=== PATIENT | female | born 2000 | race Hispanic/Latino ===

== ENCOUNTER 2025-04-19 01:42 | Emergency (ER) | payer SELFPAY ==
[~2025-04-19] VITALS: Ht 162.6 cm; Wt 123.4 kg
--- NOTE | 2025-04-19 01:52 | ERN ---
General Chief Complaint: Laceration/Avulsion Stated Complaint: LACERATION Time Seen by MD: 01:49 Source: patient History of Present Illness Initial Comments Patient was out fishing and getting a fish and her knife slipped and she cut herself twice on her left forearm volar surface incisions go through the epidermis to the subcutaneous fat. She does not know when her last tetanus shot was. Allergies: Coded Allergies: No Known Allergies (Unverified Allergy, Unknown, 04/19/25) Past Medical History Past Medical History: No Pertinent History ROS Dictation Review of systems is otherwise negative. Physical Exam Extremities Comment Left forearm two horizontal incisions about 3 in in length through the epidermis down to the subcutaneous fat. The quality of the incisions are consistent with the story provided by the patient. MDM I will give the patient a tetanus shot. Please see the procedure note for the suture repair. Patient can go home and follow-up with her primary care physician to remove the sutures. ED Course Orders Procedure Category Date Status Time Lidocaine Hcl 1% 20ml PHA 04/19/25 Complete Vial (Lidocaine Hc 02:00 Tetanus,Diphtheria PHA 04/19/25 Complete Tox [Adult] (Diphther 02:30 Bacitracin PHA 04/19/25 Complete (Bacitracin) 03:00 Current Medications Medications (Trade) Dose Ordered Sig/Paula Route PRN Reason Start Time Stop Time Status Last Admin Dose Admin Bacitracin (Bacitracin) 1 each ONCE ONCE TP 04/19/25 03:00 04/19/25 03:01 DC 04/19/25 02:44 Lidocaine HCl (Lidocaine HCl 1% 20ml Vial) 10 ml ONCE ONCE INJ 04/19/25 02:00 04/19/25 02:01 DC Tetanus/ Diphtheria Toxoids Adsorbed (DiphthERIA-teTANUS TOXOID [ADULT]/ DECAVAC) 0.5 ml ONCE ONCE IM 04/19/25 02:30 04/19/25 02:31 DC 04/19/25 02:21 Vital Signs Date Time Temp Pulse Resp B/P (MAP) Pulse Ox O2 Delivery O2 Flow Rate FiO2 04/19/25 01:44 98.1 66 18 140/96 99 Nasal Cannula Laceration/Wound Repair Laceration/Wound Repair : Wound Location: upper extremity Wound Length (cm): 7 Wound's Depth, Shape: superficial Wound Explored: clean Betadine Prep?: Yes Anesthesia: 1% Lidocaine Wound Debrided: minimal Wound Repaired With: sutures Suture Size/Type: 4:0 Number of Sutures: 20 DX & DISP Disposition: Discharge Departure Impression: Primary Impression: Forearm laceration Condition: Stable TANIA RÍOS MD April 19, 2025 01:52
[2025-04-19] MEDS: LIDOCAINE HCL 1% 20 ML VIAL INJ ONE (02:15)
--- NOTE | 2025-04-19 02:17 | NUR ---
LACERATIONS TO L FOREARM CLEANED WITH SKIN CLEANSER IRRIGATED WITH NORMAL SALINE. PATIENT TOLERATED WELL. LIDOCAINE ADMINISTERED AND SUTURES PLACED BY DR RÍOS. PATIENT TOLERATED WELL
[2025-04-19] MEDS: teTANUS/diphthERIA TOXOID [ADULT] 0.5 ML VIAL IM ONE (02:21)
[2025-04-19] MEDS: BACITRACIN 1 EACH PACKET TP ONE (02:44)
--- NOTE | 2025-04-19 02:49 | NUR ---
BACITRACIN APPLIED TO LACERATIONS, COVERED WITH NONADHERENT GAUZE WRAPPED WITH KERLIX
[2025-04-19 03:14] VITALS: BP 136/87; PULSE 62; RESP 18; TEMP 98.5; O2SAT 99
== END 2025-04-19 03:21 | disposition home or self-care (01) ==
LOC: EDH 01:42
DX: S51.812A Laceration without foreign body of left forearm, initial encounter (principal); W26.0XXA Contact with knife, initial encounter; Y93.G9 Activity, other involving cooking and grilling; Y92.89 Other specified places as the place of occurrence of the external cause; Y99.8 Other external cause status
CPT/HCPCS: 12002; 90471; 90714; 99283

== ENCOUNTER 2025-04-29 00:21 | Emergency (ER) | payer SELFPAY ==
[~2025-04-29] VITALS: Ht 162.6 cm; Wt 121.1 kg
[2025-04-29] MEDS ORDERED: OCTYL 2-CYANOACRYLATE 1 EACH TP ONE (00:42)
--- NOTE | 2025-04-29 00:49 | ERN ---
General Chief Complaint: Suture/Staple Removal Stated Complaint: SUTURE REMOVAL Time Seen by MD: 00:23 History of Present Illness Initial Comments Patient's left forearm head two laceration sewn up a week ago in the ED she is here for suture removal. Allergies: Coded Allergies: No Known Allergies (Unverified Allergy, Unknown, 04/19/25) Past Medical History Past Medical History: No Pertinent History Past Surgical History: None Physical Exam Extremities Comment Three well-healed incisions uninfected with sutures intact. MDM When I removed the 1st suture on the 1st incision the skin part a little bit and started bleeding. Same thing happened on the 2nd incision. Neither incision had any signs of infection swelling edema or drainage. I repositioned the skin with Dermabond. Patient should return in another week for suture removal. ED Course Orders Procedure Category Date Status Time Dermabond (Dermabond) PHA 04/29/25 Complete 00:42 Current Medications Medications (Trade) Dose Ordered Sig/Paula Route PRN Reason Start Time Stop Time Status Last Admin Dose Admin Octyl Cyanoacrylate (Dermabond) 1 each STK-MED ONCE TP 04/29/25 00:42 04/29/25 00:42 DC Vital Signs Date Time Temp Pulse Resp B/P (MAP) Pulse Ox O2 Delivery O2 Flow Rate FiO2 04/29/25 00:22 97.7 68 20 123/81 99 Room Air DX & DISP Disposition: Discharge Departure Impression: Primary Impression: Forearm laceration Condition: Stable Additional Instructions: Please return in a week for suture removal. Referrals: SELF,REFERRAL (PCP) TANIA RÍOS MD Apr 29, 2025 00:49
[2025-04-29 01:12] VITALS: BP 122/78; PULSE 72; RESP 18; TEMP 98.3; O2SAT 100
--- NOTE | 2025-04-29 01:12 | NUR ---
ASSUMED PT CARE AT THIS TIME
== END 2025-04-29 01:31 | disposition home or self-care (01) ==
LOC: EDH 00:21
DX: S51.812D Laceration without foreign body of left forearm, subsequent encounter (principal); X58.XXXD Exposure to other specified factors, subsequent encounter
CPT/HCPCS: 99281

== ENCOUNTER 2025-05-07 01:12 | Emergency (ER) | payer SELFPAY ==
[~2025-05-07] VITALS: Ht 162.6 cm; Wt 119.7 kg
--- NOTE | 2025-05-07 01:46 | ERN ---
ED Note History of Present Illness Stated Complaint: HERE FOR SUTURE REMOVAL Chief Complaint: Suture/Staple Removal Time Seen by MD: 01:14 Time Seen by Midlevel: 01:30 Dictation: Ms. Luna is a 24-year-old female with history of morbid obesity who presented to the emergency department this morning for suture removal. She states she and 20 sutures placed to the Allergies: Coded Allergies: No Known Allergies (Unverified Allergy, Unknown, 04/19/25) Past Medical History Past Medical History: No Pertinent History Surgical History: None Social History: Negative LMP: April 05, 2025 RN Note Reviewed/Agreed w/PFSH: Yes Review of System Dictation REVIEW OF SYSTEMS: CONSTITUTIONAL: Patient denies fevers, chills, sweats and weight changes. EYES: Patient denies any visual symptoms. EARS, NOSE, AND THROAT: No difficulties with hearing. No symptoms of rhinitis or sore throat. CARDIOVASCULAR: Patient denies chest pains, palpitations, orthopnea and parox ysmal nocturnal dyspnea. RESPIRATORY: No dyspnea on exertion, no wheezing or cough. GI: No nausea, vomiting, diarrhea, constipation, abdominal pain, hematochezia or melena. : No urinary hesitancy or dribbling. No nocturia or urinary frequency. No abnormal urethral discharge. MUSCULOSKELETAL: No myalgias or arthralgias. NEUROLOGIC: No chronic headaches, no seizures. Patient denies numbness, tingling or weakness. PSYCHIATRIC: Patient denies problems with mood disturbance. No problems with anxiety. ENDOCRINE: No excessive urination or excessive thirst. DERMATOLOGIC: She states he is here for removal of 20 sutures to the left forearm. Initial Vital Sign VS Vital Signs Date Time Temp Pulse Resp B/P (MAP) Pulse Ox O2 Delivery O2 Flow Rate FiO2 05/07/25 01:13 98.8 62 20 111/73 98 Room Air Physical Exam Dictation Vital signs: Reviewed. Afebrile Constitutional: No acute distress. Non-toxic appearing. Slightly anxious. Accompanied by family/friend. Head/Face: Normocephalic, atraumatic. Eyes: Periorbital areas with no swelling, redness, or edema. Lids and lashes are normal. Conjunctival injection is absent. Sclera anicteric. Pupils equal, round, reactive to light. ENT: Pinnas intact and no signs of trauma or erythema. Ear canals clear and no discharge. TMs no erythema. No nasal discharge or bleeding noted. Oropharynx with no exudate, redness, swelling, masses, exudates, or evidence of obstruction. Uvula midline. Mucous membranes moist. Neck: Trachea midline, no masses palpated, and no cervical lymphadenopathy. No swelling. Supple, full range of motion. Chest/Axilla: No tenderness, no crepitus, no paradoxical movement, no retractions. Cardiovascular: Regular rate, regular rhythm, no murmur, no gallops. Symmetric pulses. No peripheral edema. Normotensive. Respiratory: Respirations even and unlabored. Lung sounds clear; no wheezes, rales or rhonchi. Room air SpO2 98%. Gastrointestinal: Inspection is normal. No distention is appreciated. Bowel sounds are normal. No mass or organomegaly . There is no tenderness. No rebound. No rigidity. No voluntary or involuntary guarding. No Adorno's sign. Neurological: Normal speech, gross motor function intact, gross sensory function intact. No focal weakness/Paresthesia. Musculoskeletal/Extremities: All extremities have full range of motion, no pain or tenderness on palpation. Symmetric pulses. Reports some pain to the left forearm. She has good color, warmth, movement, and sensation to left fingers. Capillary refills less than 2 seconds. Integumentary: Skin is normal color, warm and dry. Cap refill less than 2 seconds. Lacerations to left forearm healing with scabs. [address]/removed. No bleeding. Patient tolerated well. ED Course ED Course Orders Procedure Category Date Status Time Bacitracin PHA 05/07/25 In Process (Bacitracin) 02:00 Current Medications Medications (Trade) Dose Ordered Sig/Paula Route PRN Reason Start Time Stop Time Status Last Admin Dose Admin Bacitracin (Bacitracin) 1 each ONCE ONCE TP 05/07/25 02:00 05/07/25 02:01 Vital Signs Date Time Temp Pulse Resp B/P (MAP) Pulse Ox O2 Delivery O2 Flow Rate FiO2 05/07/25 01:13 98.8 62 20 111/73 98 Room Air Uneventful ED course. Vital signs are stable. Lacerations to left forearm x3 healing well. Sutures x [address] with scabbing. They were removed; patient tolerated well. Antibiotic ointment and dressing applied. Medical Decision Making MDM MDM: Differential diagnosis: Healing laceration, infected wound. Rationale: Tests considered and ordered secondary to shared decision making include: Examination Previous outside records reviewed: Old ER visits. Risk of complication and/or morbidity or mortality of patient management: None Medications-Per medication reconciliation Need for hospitalization: Patient does not meet criteria for hospitalization. Need for emergency major/minor surgery: No There are no social concerns with this patient. Prescription drug management: OTC antibiotic ointment. Prescriptions will include symptomatic care Patient's prior external medical records from other ER visits were reviewed by me as indicated. Prior testing and results from previous visits were reviewed. Prior tests were taken into account with medical decision making and resource utilization, independent historian/historians were used to obtain complete medical history. I independently interpreted the test that were performed, results were reviewed by me and considered findings on radiology if ordered. Medical management and examination interpretation discussions were had by me with other qualified healthcare professionals as indicated for the patient's care. DX & DISP Disposition: Discharge Departure Impression: Primary Impression: Forearm laceration Additional Impression: Visit for suture removal Condition: Stable Additional Instructions: Keep the area clean and dry for the next 24 hours. After 24 hours you may shower normally but avoid soaking the area (no baths, pools, hot tubs for 2-3 more days). Apply a thin layer of antibiotic ointment daily and cover with a clean bandage until skin is fully closed. Avoid scratching or picking of the healing site. You may resume normal activity but avoid any activity of the places direct fracture friction on the area for a few more days. Avoid heavy lifting or contact sports at the site is soaps tender or scabbing. Return to the ER or your primary care physician if you see redness spreading from the site, swelling/warmth/pain that worsens, pus/drainage from the wound, or fever. To reduce the scarring consider applying vitamin-E lotion once the site is fully healed. Limit sun exposure use SPF 30 to prevent darkening of the scar Referrals: SELF,REFERRAL (PCP) Time of Disposition: 01:57 JESUS CANTU NP May 07, 2025 01:46
[2025-05-07] MEDS: BACITRACIN 1 EACH PACKET TP ONE (01:56)
[2025-05-07 02:00] VITALS: BP 110/68; PULSE 70; RESP 16; TEMP 98.6; O2SAT 99
--- NOTE | 2025-05-07 02:01 | NUR ---
SUTURE REMOVAL DONE BY [facility] [employer], BACITRACIN PLACED ON WOUND, DRESSED WITH NON STICK GAUZE, WRAPPED WITH KERLIX
== END 2025-05-07 02:16 | disposition home or self-care (01) ==
LOC: EDH 01:12
DX: S51.812D Laceration without foreign body of left forearm, subsequent encounter (principal); X58.XXXD Exposure to other specified factors, subsequent encounter
CPT/HCPCS: 99282